=== PATIENT | female | born 1990 | race Hispanic/Latino ===

== ENCOUNTER 2021-02-24 12:52 | Emergency (ER) | payer BC ==
--- OUTSIDE RECORDS SUMMARY | 2021-02-24 12:55 | XMS REPORT | Continuity of Care Document ---
:1990 Author Organization [facility] t Address [address] [place] [address] Care Team Providers Name Role Phone Provider, Urgent Care Attending Clinician Unavailable Doctor Unassigned, Name Attending Clinician Unavailable Jumana Ryan Attending Clinician Jumana Ryan Admitting Clinician Problems Condition Condition Condition Status Onset Resolution Last Treating Co mments Source Name Details Category Date Date Treatment Clinician Date SCHEDULED Diagnosis Active 2015-05-14 Memoria INDUCTION 05-08 21:53:00 l 06:56: Ashvin SCHEDULED 00 INDUCTION Active 05/08/2015 [facility] LOW BONNIE Diagnosis Active 2015-04-29 Me moria 04-22 21:50:00 l LOW BONNIE 00:00: Ashvin 00 Active 04/22/2015 [facility] CHILDBIRTH Diagnosis Active 2015-03-28 Memoria 03-28 08:22:00 l 06:00: [place] CHILDBIRTH 00 Active 03/28/2015 [facility] ADMINISTRT Diagnosis Active 2015-04-29 Memoria VE ENCOUNT 21:50:00 l NOS [place] ADMINISTRT VE ENCOUNT NOS Active [facility] PROLONGED Diagnosis Active 2015-05-14 Memoria PREG-DEL 21:53:00 l [place] PROLONGED PREG-DEL Active [facility] Childhood Problem Resolve 2015-05-13 M emoria asthma d 00:38:43 l (disorder) Johnnie chacon Childhood asthma (disorder) Resolved Problem 05/13/2015 [facility] Oligohydra Problem Active 2015-05-13 M emoria mnios 00:38:43 l (disorder) Johnnie n Oligohydra mnios (disorder) Active Problem 05/13/2015 [facility] Patient Problem Resolve 2015-05-13 2015-05-13 Memoria currently d 04-22 00:38:43 00:38:43 l Patient 00:00: Aye plummer (finding) currently 00 (finding) Resolved 04/22/2015 Problem 05/13/2015 [facility] Allergies, Adverse Reactions, Alerts This patient has no known allergies or adverse reactions. Social History Social Habit Start Date Stop Date Quantity Comments Source Social History 2015-04-23 2015-04-23 [facility] 00:42:31 00:42:31 Medications Ordered Filled Start Stop Current Ordering Indication Dosage Frequency Signature Comments Components Source Medication Medication Date Date Medication? Clinician (SIG) Name Name Acetaminoph No 1 - 2 tab, Memoria en 300 MG / 6-13 PO, Q4H, l Codeine 12:11: PRN Pain, Aye nn Phosphate 00 X 2 day, # 30 MG Oral 20 tab, 0 Tablet Refill(s) [Tylenol with Codeine #3] Ibuprofen Yes Special Memor ia 600 MG Oral 13 Instructio l Tablet 12:11: ns: take Ashvin [Motrin] 00 with food benzocaine No Notes: Memor ia topical 12 (Same As: l spray 18:47: Dermoplast Johnnie n 00 ) FOR EXTERNAL USE ONLY No 1 tab, Memoria Multivitami 6-12 Route: PO, l ns with 14:00: Drug Form: Herm dulce maria Folic Acid 00 TAB, 0.8 mg oral Dosing tablet Weight 67.273, kg, Daily, Start date: 05/09/15 9:00:00, Duration: 30 day, Stop date: 06/07/15 9:00:00 No 1 tab, Memoria Multivitami 6-12 Route: PO, l ns oral 14:00: Drug Form: Herm dulce maria tablet 00 TAB, Dosing Weight 67.273, kg, Daily, Start date: 05/09/15 9:00:00, Duration: 30 day, Stop date: 06/07/15 9:00:00 Zofran No Notes: Memoria 6-12 (Same as: l 11:54: Zofran) [place] 00 Phenergan No Notes: Memori a 6-12 (Same as: l 11:54: Phenergan) Ashvin 00 Benadryl No Notes: Memoria 6-12 (Same as: l 11:54: Benadryl) [place] 00 Ibuprofen No Notes: Memori a 400 MG Oral -12 (Same as: l Tablet 08:18: Motrin) Ashvin "Do Not Crush" Take with food. Acetaminoph No Notes: Sab[place] stefanie en 325 MG / 612 (Same as: l Hydrocodone 08:16: [place] Aye nn Bitartrate 00 325/5) Do 5 MG Oral not exceed Tablet 4gm/day of [[place] acetaminop 5/325] hen. M-M-R II No Notes: Memoria 6-12 (Same as: l 01:00: M-M-R II) Ashvin (measles-m umps-rubel la virus vaccine 0.5 ml INJ VL) GIVE PRIOR TO DISCHARGE Acetaminoph No Notes: [place] stefanie en 325 MG / 12 (Same as: l Hydrocodone 00:44: [place] Aye nn Bitartrate 00 325/5) Do 5 MG Oral not exceed Tablet 4gm/day of acetaminop hen. Ibuprofen No Notes: Memori a 6-12 (Same as: l 00:44: Motrin) [place] "Do Not Crush" Take with food. Acetaminoph No Notes: [place] stefanie en 325 MG / 6-12 Same as l Hydrocodone 00:44: [place] Aye nn Bitartrate 00 325-7.5mg 7.5 MG Oral Do not Tablet exceed 4gm/day of acetaminop hen. Acetaminoph No Notes: Do M emoria en -12 not exceed l 00:44: 4 gm/day. [place] 00 (Same as: Tylenol) Lactated No 1,000 mL, Sab[place] stefanie Ringers IV 05-09 Rate: 100 l 1,000 mL 00:44: ml/hr, [place] 00 Infuse over: 10 hr, Route: IV, Dosing Weight 67.273 kg, Total Volume: 1,000, Start date: 05/08/15 19:44:00, Duration: 30 day, Stop date: 06/07/15 19:43:00 Promethazin No Notes: Do M emoria e 6-12 not give l 00:44: IV push. [place] (Same as: Phenergan) Ondansetron No Notes: Sab[place] stefanie 6-12 (Same as: l 00:44: Zofran) [place] MEDICATION WASTE Product Size: 4 mg Product Wasted: ___ mg Docusate No Notes: Memoria 6-12 (Same as: l 00:44: Colace) [place] (Do Not Crush) Bisacodyl No Notes: Memori a 6-12 (Same As: l 00:44: Dulcolax, [place] Bisco-Lax) lanolin No 1 appl, Memoria topical 05-09 Route: l 00:44: TOP, PRN, Ashvin Drug form: OINT, PRN Other -See Comment, Start date: 05/08/15 19:44:00, Duration: 30 day, Stop date: 06/07/15 19:43:00 Benzocaine No Notes: Memor ia 200 MG/ML 05-09 (Same As: l Topical 00:44: Dermoplast Herm dulce maria [place] ) FOR [Dermoplast EXTERNAL ] USE ONLY zolpidem No Notes: Memoria 6-12 (Same As: l 00:44: Ambien) [place] 00 Methylergon No Notes: Sab[place] stefanie ovine 6-12 (Same l 00:44: as:Metherg [place] 00 ine) Oxytocin No Notes: Memoria 0.06 UNT/ML 6-12 (Same as: l Injectable 00:44: OXYTOCIN-D H ermann Solution 00 5LR) Methylergon No Notes: [place] stefanie ovine 6-11 (Same l 16:00: as:Metherg [place] 00 ine) Misoprostol No Notes: [place] stefanie 6-11 (Same l 16:00: as:Cytotec [place] 00 ) Take with food Carboprost No Notes: Memor ia 6-11 (Same As: l 16:00: Hemabate) [place] Citric Acid No Notes: [place] stefanie / sodium 6-11 (Same As: l citrate 16:00: BicitraJohnnie n 00 Cytra-2) Sodium citrate-ci tric acid (500-334 mg/5 mL): 1 mL contains sodium 1 mEq/mL and bicarbonat e 1 mEq/mL Famotidine No Notes: Memor ia 6-11 (Same as: l 16:00: Pepcid) Can be dilute in 5-10cc NS IVP: Slow IV push over at least 2 minutes. Oxytocin No Notes: Memoria 0.06 UNT/ML 05-08 (Same as: l Injectable 15:59: OXYTOCIN-D H ermann Solution 00 5LR) lidocaine No Notes: Memori a 1% 05-08 (Same as: l 15:11: Xylocaine) Terbutaline No Notes: [place] stefanie 05-08 DO NOT l 15:11: USE IN MODELING TEACHER AREA (Same As: Clint) Ondansetron No Notes: [place] stefanie 6-11 (Same as: l 15:11: Zofran) MEDICATION WASTE Product Size: 4 mg Product Wasted: __0_ mg Calcium No 1,000 mL, Memor ia Chloride 11 1,000 l 0.0014 15:11: ml/hr, [place] MEQ/ML / 00 Infuse Potassium Over: 1 Chloride hr, Route: 0.004 IV, 1,000, MEQ/ML / Drug form: Sodium INJ, ONCE, Chloride Dosing 0.103 Weight MEQ/ML / 67.273 kg, Sodium Start Lactate date: 0.028 05/08/15 MEQ/ML 10:11:00, Injectable Stop date: Solution 05/08/15 10:11:00, Bolus for regional anesthesia per unit protocol Lactated No 1,000 mL, [place] stefanie Ringers IV 05-08 Rate: 125 l 1,000 mL 15:11: ml/hr, Infuse over: 8 hr, Route: IV, Dosing Weight 67.273 kg, Total Volume: 1,000, Start date: 05/08/15 10:11:00, Duration: 30 day, Stop date: 06/07/15 10:10:00 lidocaine No Notes: Memori a 1% -11 Preservati l injectable 15:11: ve free. Her zuñiga solution 00 (Same as: Xylocaine MPF) Oxytocin No Notes: Memoria 0.06 UNT/ML -11 (Same as: l Injectable 15:11: OXYTOCIN-D H ermann Solution 00 5LR) Butorphanol No Notes: [place] stefanie -11 (Same As: l 15:11: Stadol) Ash[place] 00 MEDICATION WASTE Product Size: 2 mg Product Wasted: _0__ mg Vital Signs Vital Name Observation Time Observation Value Comments Source Systolic (mm Hg) 2015-05-10 13:30:00 Sab[place] rial Ash[place] Diastolic (mm Hg) 2015-05-10 13:30:00 Mem orial [place] Respitory Rate 2015-05-10 13:30:00 Memori al [place] Heart Rate 2015-05-10 13:30:00 Memorial [place] Temperature Oral (F) 2015-05-10 13:30:00 98.1 F Memorial [place] Temperature Oral (F) 2015-05-10 05:25:00 97.3 F Memorial [place] Heart Rate 2015-05-10 05:25:00 Memorial [place] Respitory Rate 2015-05-10 05:25:00 Memori al [place] Systolic (mm Hg) 2015-05-10 05:25:00 Sab[place] rial [place] Diastolic (mm Hg) 2015-05-10 05:25:00 Mem orial [place] Heart Rate 2015-05-09 21:58:00 Memorial [place] Systolic (mm Hg) 2015-05-09 21:58:00 Sab[place] rial [place] Diastolic (mm Hg) 2015-05-09 21:58:00 Mem orial [place] Temperature Oral (F) 2015-05-09 21:58:00 98.2 F Memorial [place] Respitory Rate 2015-05-09 21:58:00 Memori al [place] Weight 2015-05-08 15:10:00 Memorial [place] BMI Calculated 2015-05-08 15:10:00 Memori al [place] Height 2015-05-08 15:10:00 154.94 cm [facility] Procedures Procedure Date / Time Performed Performing Clinician Sourc e Cone biopsy of cervix 2011-05-06 05:00:00 Memori al [place] Encounters Start End Encounter Admission Attending Care Care Encounter Source Date/Time Date/Time Type Type Clinicians Facility Department ID 2020-12-07 2020-12-07 Urgent Provider, [facility] [place] [id number] 17:17:46 18:24:00 Care [facility] [id number] Care [place] [id number] Professio [id number] nal [address] 2020-12-07 2020-12-07 Letter Doctor CAMERON [id number] 00:00:00 00:00:00 (Out) Unassigned, CHANEL [id number] [place] [facility] [id number] 2015-05-08 2015-05-10 Outpatient Ryan, [facility] [id number] 06:56:00 17:28:00 [facility] Test Description Test Time Test Comments Results Result Sourc e Comments HEMATOLOGY 2015-05-09 12.0 Memorial 19:12:00 [place] HEMATOLOGY 2015-05-09 35.6 Memorial 19:12:00 [place] BLOOD BANK RESULTS 2015-05-08 Negative Memori al 15:30:00 (05/08/15 10:30 Ahsvin AM) HEMATOLOGY 2015-05-08 0.3 Memorial 15:30:00 Ashvin HEMATOLOGY 2015-05-08 1.7 Memorial 15:30:00 [place] HEMATOLOGY 2015-05-08 8.3 Memorial 15:30:00 [place] HEMATOLOGY 2015-05-08 0.4 Memorial 15:30:00 [place] HEMATOLOGY 2015-05-08 0.3 Memorial 15:30:00 Ashvin HEMATOLOGY 2015-05-08 16.4 Memorial 15:30:00 [place] HEMATOLOGY 2015-05-08 3.2 Memorial 15:30:00 [place] HEMATOLOGY 2015-05-08 79.7 Memorial 15:30:00 Ash[place] HEMATOLOGY 2015-05-08 39.6 Memorial 15:30:00 [place] HEMATOLOGY 2015-05-08 4.47 Memorial 15:30:00 [place] HEMATOLOGY 2015-05-08 13.4 Memorial 15:30:00 [place] HEMATOLOGY 2015-05-08 10.4 [facility] 15:30:00 [place] HEMATOLOGY 2015-05-08 235 [facility] 15:30:00 [place] HEMATOLOGY 2015-05-08 9.4 Memorial 15:30:00 [place] HEMATOLOGY 2015-05-08 14.3 [facility] 15:30:00 [place] HEMATOLOGY 2015-05-08 33.9 [facility] 15:30:00 [place] HEMATOLOGY 2015-05-08 88.6 [facility] 15:30:00 [place] HEMATOLOGY 2015-05-08 15:30:00 Test Item Value Reference Range Interpretation Comme nts MCH (test code = MCH) 30.0 pg 27.0-31.0 [id number] 15:30:00Non Reactive (05/08/15 10:30 AM) [id number] 15:30:00Negative *NA*(05/08/15 10:30 AM) [facility]
[2021-02-24 13:41] LABS: Urine Blood Negative (Negative); Urine Glucose Negative (Negative); Urine Protein Negative (Negative)
[2021-02-24 13:55] LABS: Urine Bacteria NONE SEEN /HPF (<20); Urine RBC NONE SEEN /HPF (NONE SEEN)
[2021-02-24] MEDS ORDERED: NA CHLORIDE 0.9% 1,000 ML ONE (13:57)
[2021-02-24] MEDS ORDERED: KETOROLAC 30 MG/ML INJ ONE (14:01)
[2021-02-24 14:07] LABS: Absolute Lymphocytes (CBC) 0.8 K/uL (0.7-4.9); Basophils % 0.3 % (0-1.3); Hematocrit 39.3 % (36.0-45.0); Lymphocytes % 25.4 % (15.3-44.8); MPV 8.2 fL (7.6-11.3); RBC Red Blood Cell Count 4.61 M/uL (3.86-4.86)
[2021-02-24 14:15] LABS: ALT/SGPT 37 U/L (12-78); AST/SGOT 30 U/L (15-37); Albumin 3.6 g/dL (3.4-5.0); Alkaline Phosphatase 105 U/L (45-117); BUN Blood Urea Nitrogen 7 mg/dL (7-18); Bicarbonate 29 mmol/L (21-32); Bilirubin Direct 0.2 mg/dL (0-0.2); Bilirubin Total 0.4 mg/dL (0.2-1.0); Glucose Level 93 mg/dL (74-106); Lipase 173 U/L (73-393); Potassium 3.7 mmol/L (3.5-5.1); Protein, Total 7.9 g/dL (6.4-8.2); Sodium Level 140 mmol/L (136-145)
--- NOTE | 2021-02-24 14:48 | RAD REPORT ---
EXAM DESCRIPTION: CT - Abdomen Pelvis W Contrast - 02/24/2021 2:30 pm CLINICAL HISTORY: Abdominal pain/left flank pain COMPARISON: none. TECHNIQUE: Computed axial tomography of the abdomen pelvis was obtained. 100 cc Isovue-300 was admin istered intravenously. Oral contrast was not requested which limits evaluation of bowel. All CT scans are performed using dose optimization technique as appropriate and may include automated exposure control or mA/KV adjustment according to patient size. FINDINGS: Mild right lower lobe atelectasis. The liver, spleen, pancreas, adrenal and kidneys appear unremarkable. There is no evidence of diverticulitis. IMPRESSION: No acute abnormality is displayed.
--- NOTE | 2021-02-24 15:09 | ER ---
Nurse's Notes [facility] Name: Luann Hercules Age: 30 yrs Sex: Female : 1990 Arrival Date: 02/24/2021 Time: 12:57 Bed 17 Private MD: Diagnosis: Low back pain Presentation: 02/24 13:08 Chief complaint: Patient states: Fever and chills since . L flank pain with ll1 slight spotting started today. + nausea. Coronavirus screen: Client denies travel out of the [place] in the last 14 days. cough unrelated to allergies, fatigue, fever, nausea, Client presents with at least one sign or symptom that may indicate coronavirus-19. Standard/surgical mask placed on the client. Ebola Screen: Patient denies travel to an Ebola-affected area in the 21 days before illness onset. Initial Sepsis Screen: Does the patient meet any 2 criteria? HR > 90 bpm. No. Patient's initial sepsis screen is negative. Does the patient have a suspected source of infection? Yes: Dysuria/Frequency/Urgency/UTI. Risk Assessment: Do you want to hurt yourself or someone else? Patient reports no desire to harm self or others. Onset of symptoms was February 19, 2021. 13:08 Method Of Arrival: Ambulatory ll1 13:08 Acuity: JOSE 3 ll1 Historical: - Allergies: 13:07 No Known Allergies; ll1 - PMHx: 13:07 None; ll1 - PSHx: 13:07 None; ll1 - Immunization history:: Flu vaccine is up to date. - Social history:: Smoking status: Patient denies any tobacco usage or history of. Screenin:00 Abuse screen: Denies threats or abuse. Denies injuries from another. Nutritional jl7 screening: No deficits noted. Tuberculosis screening: No symptoms or risk factors identified. Fall Risk IV access (20 points). Total Dobbins Fall Scale indicates No Risk (0-24 pts). Assessment: 13:30 General: Appears in no apparent distress. uncomfortable, Behavior is calm, cooperative, jl7 appropriate for age. Pain: Complains of pain in left flank Pain currently is 6 out of 10 on a pain scale. Pain began 2-3 days ago. Neuro: Level of Consciousness is awake, alert, obeys commands, Oriented to person, place, time, situation. Cardiovascular: Patient's skin is warm and dry. Respiratory: Airway is patent Respiratory effort is even, unlabored, Respiratory pattern is regular, symmetrical. Derm: Skin is pink, warm \T\ dry. 14:30 Reassessment: Patient appears in no apparent distress at this time. Patient and/or jl7 family updated on plan of care and expected duration. Pain level reassessed. Patient is alert, oriented x 3, equal unlabored respirations, skin warm/dry/pink. Patient states feeling better. Vital Signs: 13:08 BP 139 / 93; Pulse 96; Resp 16; Temp 98.8; Pulse Ox 97% on R/A; Weight 70.31 kg; Height ll1 5 ft. 1 in. (154.94 cm); Pain 8/10; 15:10 BP 112 / 74; Pulse 89; Resp 17; Pulse Ox 99% ; jl7 13:08 Body Mass Index 29.29 (70.31 kg, 154.94 cm) ll1 ED Course: 12:57 Patient arrived in ED. mr 13:06 Arm band placed on Patient placed in an exam room, on a stretcher. ll1 13:09 Triage completed. ll1 13:11 Trino Jonas, RUI is PHCP. pm1 13:11 Dorie Ratliff MD is Attending Physician. pm1 13:29 Ladi Colon, KAY is Primary Nurse. jl7 14:00 Patient has correct armband on for positive identification. Bed in low position. Call jl7 light in reach. Side rails up X 1. 14:00 Initial lab(s) drawn, by ED staff, sent to lab. Urine collected: clean catch specimen, jl7 clear. Inserted saline lock: 20 gauge in right antecubital area, using aseptic technique. Blood collected. 14:30 CT Abd/Pelvis - IV Contrast Only In Process Unspecified. EDMS 15:25 No provider procedures requiring assistance completed. IV discontinued, intact, jl7 bleeding controlled, No redness/swelling at site. Pressure dressing applied. Administered Medications: 13:50 Drug: NS 0.9% 1000 ml Route: IV; Rate: 1000 ml; Site: right antecubital; jl7 15:00 Follow up: Response: No adverse reaction; IV Status: Completed infusion; IV Intake: jl7 1000ml 13:50 Drug: TORadol 30 mg Route: IVP; Site: right antecubital; jl7 14:30 Follow up: Response: No adverse reaction; Pain is decreased jl7 Intake: 15:00 IV: 1000ml; Total: 1000ml. jl7 Outcome: 15:08 Discharge ordered by . pm1 15:25 Discharged to home ambulatory. jl7 15:25 Condition: stable 15:25 Discharge instructions given to patient, Instructed on discharge instructions, follow up and referral plans. medication usage, Demonstrated understanding of instructions, follow-up care, medications, Prescriptions given X 2. 15:27 Patient left the ED. jl7 Signatures: Dispatcher [employer] Selma Coffey JennaTrino kauffman, RUI SIGNAL INTELLIGENCE/[employer]IC [employer]AR[employer] pm1 Ladi Colon RN RN jl7 Enzo Plunkett RN RN ll1
--- NOTE | 2021-02-24 15:09 | EDPHYS ---
Physician Documentation [facility] Name: Luann Hercules Age: 30 yrs Sex: Female : 1990 Arrival Date: 02/24/2021 Time: 12:57 Bed 17 Private MD: ED Physician Dorie Ratliff HPI: 02/24 13:26 This 30 yrs old Female presents to ER via Ambulatory with complaints of Flank pm1 Pain. 13:26 The patient complains of pain in the left low back. The pain radiates to the left upper pm1 quadrant. 13:26 Onset: The symptoms/episode began/occurred 5 day(s) ago. Modifying factors: The pm1 symptoms are alleviated by nothing. the symptoms are aggravated by nothing. Associated signs and symptoms: Pertinent positives: nausea, subjective fever and chills, Pertinent negatives: diarrhea, dysuria, urinary frequency, vomiting. Severity of pain: in the emergency department the pain is actually worse. The patient has been recently seen by a physician: negative covid and urine test yesterday at [facility]. The day before negative covid test. Historical: - Allergies: 13:07 No Known Allergies; ll1 - PMHx: 13:07 None; ll1 - PSHx: 13:07 None; ll1 - Immunization history:: Flu vaccine is up to date. - Social history:: Smoking status: Patient denies any tobacco usage or history of. ROS: 13:26 Constitutional: Negative for fever, chills, and weight loss, Cardiovascular: Negative pm1 for chest pain, palpitations, and edema, Respiratory: Negative for shortness of breath, cough, wheezing, and pleuritic chest pain. 13:26 : Negative for injury, bleeding, discharge, and swelling, MS/Extremity: Negative for injury and deformity, Skin: Negative for injury, rash, and discoloration, Neuro: Negative for headache, weakness, numbness, tingling, and seizure. 13:26 Abdomen/GI: Positive for abdominal pain, nausea, of the left upper quadrant, Negative for diarrhea, constipation. 13:26 Back: Positive for flank pain, on the left. Exam: 13:26 Constitutional: This is a well developed, well nourished patient who is awake, alert, pm1 and in no acute distress. Head/Face: Normocephalic, atraumatic. Chest/axilla: Normal chest wall appearance and motion. Nontender with no deformity. No lesions are appreciated. 13:26 Back: No spinal tenderness. No costovertebral tenderness. Full range of motion. Skin: Warm, dry with normal turgor. Normal color with no rashes, no lesions, and no evidence of cellulitis. MS/ Extremity: Pulses equal, no cyanosis. Neurovascular intact. Full, normal range of motion. 13:26 Cardiovascular: Rate: normal, Rhythm: regular, Pulses: no pulse deficits are appreciated. 13:26 Respiratory: Exam negative for acute changes, respiratory distress, shortness of breath. 13:26 Abdomen/GI: Inspection: abdomen appears normal, Palpation: abdomen is soft and non-tender, in all quadrants. 13:26 Neuro: Orientation: is normal, Mentation: is normal, Motor: is normal, moves all fours, Gait: is steady, at a normal pace, without difficulty. Vital Signs: 13:08 BP 139 / 93; Pulse 96; Resp 16; Temp 98.8; Pulse Ox 97% on R/A; Weight 70.31 kg; Height ll1 5 ft. 1 in. (154.94 cm); Pain 8/10; 15:10 BP 112 / 74; Pulse 89; Resp 17; Pulse Ox 99% ; jl7 13:08 Body Mass Index 29.29 (70.31 kg, 154.94 cm) ll1 MDM: 13:14 Patient medically screened. pm1 15:08 Data reviewed: vital signs. Data interpreted: Pulse oximetry: on room air is 97 %. pm1 Interpretation: normal. Counseling: I had a detailed discussion with the patient and/or guardian regarding: the historical points, exam findings, and any diagnostic results supporting the discharge/admit diagnosis, lab results, radiology results, the need for outpatient follow up, to return to the emergency department if symptoms worsen or persist or if there are any questions or concerns that arise at home. 02/24 13:24 Order name: Basic Metabolic Panel pm1 02/24 13:24 Order name: CBC with Diff; Complete Time: 14:41 pm1 02/24 13:24 Order name: Hepatic Function; Complete Time: 14:41 pm1 02/24 13:24 Order name: Lipase; Complete Time: 14:41 pm1 02/24 13:24 Order name: Urine Microscopic Only; Complete Time: 14:01 pm1 02/24 13:24 Order name: Basic Metabolic Panel; Complete Time: 14:41 EDMS 02/24 13:24 Order name: IV Saline Lock; Complete Time: 13:50 pm1 02/24 13:24 Order name: Labs collected and sent; Complete Time: 13:50 pm1 02/24 13:24 Order name: Urine Dipstick-Ancillary (obtain specimen); Complete Time: 13:50 pm1 02/24 13:24 Order name: CT Abd/Pelvis - IV Contrast Only; Complete Time: 14:49 pm1 02/24 13:40 Order name: Urine Dipstick-Ancillary; Complete Time: 14:01 EDMS 02/24 13:44 Order name: Urine --Ancillary (enter results); Complete Time: 14:01 bd 02/24 13:24 Order name: Urine Test (obtain specimen); Complete Time: 13:50 pm1 Administered Medications: 13:50 Drug: NS 0.9% 1000 ml Route: IV; Rate: 1000 ml; Site: right antecubital; jl7 15:00 Follow up: Response: No adverse reaction; IV Status: Completed infusion; IV Intake: jl7 1000ml 13:50 Drug: TORadol 30 mg Route: IVP; Site: right antecubital; jl7 14:30 Follow up: Response: No adverse reaction; Pain is decreased jl7 Disposition: 18:49 Co-signature as Attending Physician, Dorie Ratliff MD. ma2 Disposition: 02/24/21 15:08 Discharged to Home. Impression: Low back pain. - Condition is Stable. - Discharge Instructions: Back Pain, Adult, Flank Pain, Adult. - Prescriptions for Cyclobenzaprine 10 mg Oral Tablet - take 1 tablet by ORAL route every 8 hours As needed; 30 tablet. Diclofenac Sodium 75 mg Oral Tablet, Delayed Release (E.C.) - take 1 tablet by ORAL route 2 times per day As needed; 30 tablet. - Medication Reconciliation Form, Thank You Letter, Antibiotic Education, Prescription Opioid Use form. - Follow up: Emergency Department; When: As needed; Reason: Worsening of condition. Follow up: Private Physician; When: 2 - 3 days; Reason: Recheck today's complaints, Continuance of care, Re-evaluation by your physician. - Problem is new. - Symptoms have improved. Signatures: Dispatcher [employer] EDMS Trino Jonas NP PRODUCT SPECIALIST pm1 Ladi Colon, RN RN jl7 Dorie Ratliff MD MD ma2 Enzo Plunkett, RN RN ll1 Corrections: (The following items were deleted from the chart) 15:27 15:08 02/24/2021 15:08 Discharged to Home. Impression: Low back pain. Condition is jl7 Stable. Forms are Medication Reconciliation Form, Thank You Letter, Antibiotic Education, Prescription Opioid Use. Follow up: Emergency Department; When: As needed; Reason: Worsening of condition. Follow up: Private Physician; When: 2 - 3 days; Reason: Recheck today's complaints, Continuance of care, Re-evaluation by your physician. Problem is new. Symptoms have improved. pm1
[2021-02-24 15:31] VITALS: TEMP 98.8
[2021-02-24 15:32] VITALS: BP 112/74; O2SAT 99
== END 2021-02-24 15:27 | disposition home or self-care (01) ==
LOC: ER 12:52
DX: M54.5 Low back pain (principal)
CPT/HCPCS: 85025; 80048; 36415; 81025; 80076; 83690; 74177; Q9967; J7030; 81003; 81015; 96361; 96374; 99284